=== PATIENT | female | born 1935 ===

== ENCOUNTER 2020-12-04 18:11 | Emergency (ER) | payer SELFPAY ==
[~2020-12-04] VITALS: Ht 152.4 cm; Wt 60.0 kg
--- NOTE | 2020-12-04 18:50 | NUR ---
REPORT TO HCANTAL MATTHEW.
--- NOTE | 2020-12-04 18:52 | NUR ---
report from kevon assumed care of pt at this time
[2020-12-04 18:56] VITALS: BP 136/43
--- NOTE | 2020-12-04 18:57 | NUR ---
PT TO X RAY AT THIS TIME
== END 2020-12-04 20:31 | disposition home or self-care (01) ==
LOC: EDBD 18:11 → ED 18:41
DX: G89.11 Acute pain due to trauma (principal); M25.561 Pain in right knee; M79.641 Pain in right hand; R94.31 Abnormal electrocardiogram [ECG] [EKG]; W01.0XXA Fall on same level from slipping, tripping and stumbling without subsequent striking against object, initial encounter; Y93.89 Activity, other specified; Y92.59 Other trade areas as the place of occurrence of the external cause; Y99.8 Other external cause status
CPT/HCPCS: 93005; 99284